=== PATIENT | male | born 1990 | race Hispanic/Latino ===

== ENCOUNTER 2017-08-20 19:49 | Emergency (ER) | payer OTHER | END 2017-08-20 21:35 | disposition home or self-care (01) | LOC: EDH 19:49 | DX: Z00.01 Encounter for general adult medical examination with abnormal findings (principal); R61 Generalized hyperhidrosis; A15.9 Respiratory tuberculosis unspecified; I10 Essential (primary) hypertension; Z90.49 Acquired absence of other specified parts of digestive tract; Z72.0 Tobacco use | CPT/HCPCS: 71046 ==